=== PATIENT | male | born 2000 | race Caucasian/White ===

== ENCOUNTER 2024-08-17 13:50 | Inpatient (IN) | payer OTHER ==
[2024-08-17 16:48] VITALS: BMI 19.2
[2024-08-17] MEDS ORDERED: cloNIDine HCL 0.1 MG TABLET PO PRN (16:59)
[2024-08-17] MEDS ORDERED: BENZONATATE 200 MG CAPSULE PO PRN (17:02)
[2024-08-17] MEDS ORDERED: guaiFENesin 600 MG TABLET.ER (FP) PO PRN (17:02)
[2024-08-17] MEDS ORDERED: POLYETHYLENE GLYCOL (HEALTHYLAX) 3350 17 GM PACKET PO PRN (17:02)
[2024-08-17] MEDS ORDERED: ONDANSETRON *ODT* 4 MG TABLET SL PRN (17:02)
[2024-08-17] MEDS ORDERED: MAGNESIUM HYDROX 2400MG/30ML ORAL SUSPENSION 30 ML CUP PO PRN (17:02)
[2024-08-17] MEDS ORDERED: MAG HYDROX/AL HYDROX/SIMETH 30 ML UNIT-DOSE CUP PO PRN (17:02)
[2024-08-17] MEDS ORDERED: NICOTINE POLACRILEX 2 MG LOZENGE BC PRN (17:02)
[2024-08-17] MEDS ORDERED: DICYCLOMINE HCL 10 MG CAPSULE PO PRN (17:02)
[2024-08-17] MEDS ORDERED: BENZOCAINE/MENTHOL (CHLORASEPTIC ) LOZENGE MM PRN (17:02)
[2024-08-17] MEDS ORDERED: LOPERAMIDE HCL 2 MG CAPSULE PO PRN (17:02)
[2024-08-17] MEDS ORDERED: BISMUTH SUBSALICYLATE 524 MG/30 ML PO PRN (17:02)
[2024-08-17] MEDS ORDERED: P-EPHED 60MG/TRIPROLIDI 2.5MG TABLET PO PRN (17:02)
[2024-08-17] MEDS ORDERED: NALOXONE (NARCAN) HCL 4 MG/0.1 ML SPRAY NS PRN (17:02)
[2024-08-17] MEDS ORDERED: ACETAMINOPHEN 325 MG TABLET (FP) PO PRN (17:02)
[2024-08-17] MEDS: diazePAM 5 MG TABLET PO ONE (18:08)
[2024-08-17] MEDS: methaDONE HCL 10 MG TABLET (FOR DETOX USE ONLY) PO ONE (22:01)
[2024-08-17] MEDS: MELATONIN 5 MG TABLETS PO SCH (22:45)
[2024-08-17] MEDS: THIAMINE 100 MG TABLET PO SCH (22:45)
[2024-08-17] MEDS ORDERED: methaDONE HCL 10 MG TABLET (FOR DETOX USE ONLY) ONE (23:10)
[2024-08-17] MEDS ORDERED: diazePAM 5 MG TABLET ONE (23:10)
[2024-08-17] MEDS ORDERED: MELATONIN 5 MG TABLETS ONE (23:11)
[2024-08-17] MEDS ORDERED: NICOTINE POLACRILEX 2 MG GUM ONE (23:33)
[2024-08-17] MEDS: diazePAM 5 MG TABLET PO SCH (23:35)
[2024-08-17] MEDS: SULFAMETHOXAZOLE/TRIMETHOPRIM 800MG/160MG D.S. TABLET PO SCH (23:39)
[2024-08-17] MEDS: NICOTINE POLACRILEX 2 MG GUM BUC PRN (23:43)
[2024-08-18] MEDS ORDERED: NICOTINE POLACRILEX 2 MG GUM ONE (05:47)
[2024-08-18] MEDS ORDERED: diazePAM 5 MG TABLET ONE ×2 (05:47→10:19)
[2024-08-18] MEDS: NICOTINE POLACRILEX 4 MG GUM BUC PRN (06:58)
[2024-08-18] MEDS ORDERED: BACITRACIN 0.9 GM PACKET ONE (09:15)
[2024-08-18] MEDS ORDERED: NICOTINE POLACRILEX 4 MG GUM BUC ONE (09:34)
[2024-08-18] MEDS: NICOTINE 14 MG/24 HOURS TOPICAL PATCH TD SCH (09:46)
[2024-08-18] MEDS: PRENATAL VITAMINS W/ FOLIC ACID TABLET (FP) PO SCH (09:46)
[2024-08-18] MEDS ORDERED: PRENATAL VITAMINS W/ FOLIC ACID TABLET (FP) PO ONE (09:48)
[2024-08-18] MEDS: BACITRACIN ZINC 15 GM TUBE TOPICAL OINTMENT TP SCH (10:12)
[2024-08-18] MEDS: methaDONE HCL 10 MG TABLET (FOR DETOX USE ONLY) PO ONE (10:13)
[2024-08-18] MEDS ORDERED: NICOTINE 14 MG/24 HOURS TOPICAL PATCH TD ONE (10:20)
[2024-08-18] MEDS ORDERED: methaDONE HCL 10 MG TABLET (FOR DETOX USE ONLY) ONE (10:20)
[2024-08-18 11:16] LABS: HEMATOCRIT 33.3 % (35.4-49); HEMOGLOBIN 11.1 GM/dL (11.7-16.9); MCH 27.7 pg (25.7-33.7); MCHC 33.2 g/dl (32.0-35.9); MEAN CELL VOLUME 83.4 fl (80-96); MEAN PLT VOLUME 7.6 fl (7.5-11.1); PLATELET COUNT 401 10^3/uL (134-434); RDW 14.3 % (11.9-15.9); WHITE BLOOD COUNT 6.2 K/mm3 (4.0-10.0)
[2024-08-18 11:59] LABS: POTASSIUM 4.6 mmol/L (3.5-5.1)
[2024-08-18 12:03] LABS: ALBUMIN 2.5 g/dl (3.4-5.0); BLOOD UREA NITROGEN 10.6 mg/dL (7-18); CALCIUM 9.3 mg/dL (8.5-10.1)
[2024-08-18 12:07] LABS: BILIRUBIN,TOTAL 0.2 mg/dL (0.2-1); TOT PROT 5.6 g/dl (6.4-8.2)
[2024-08-18 12:10] LABS: CREATININE 0.7 mg/dL (0.55-1.3)
[2024-08-18] MEDS: diazePAM 5 MG TABLET PO PRN (14:43)
[2024-08-18] MEDS: POVIDONE-IODINE 10% SOLN 118 ML BOTTLE TP ONE (14:54)
[2024-08-18] MEDS: METHOCARBAMOL 500 MG TABLET PO PRN (22:18)
[2024-08-19] MEDS: diazePAM 5 MG TABLET PO SCH (05:28)
[2024-08-19] MEDS: IBUPROFEN 600 MG TABLET (FP) PO PRN (12:59)
[2024-08-20] MEDS: diazePAM 5 MG TABLET PO SCH (05:18)
[2024-08-20] MEDS: methaDONE HCL 10 MG TABLET (FOR DETOX USE ONLY) PO ONE (09:30)
[2024-08-20] MEDS: IBUPROFEN 400 MG TABLET (FP) PO PRN (17:31)
[2024-08-21] MEDS: diazePAM 5 MG TABLET PO ONE (06:02)
[2024-08-21 09:04] LABS: HEMATOCRIT 34.5 % (35.4-49); HEMOGLOBIN 11.2 GM/dL (11.7-16.9); MCH 27.1 pg (25.7-33.7); MCHC 32.6 g/dl (32.0-35.9); MEAN CELL VOLUME 83.3 fl (80-96); MEAN PLT VOLUME 7.3 fl (7.5-11.1); PLATELET COUNT 467 10^3/uL (134-434); RBC 4.14 M/mm3 (4.00-5.60); RDW 14.3 % (11.9-15.9); WHITE BLOOD COUNT 11.5 K/mm3 (4.0-10.0)
[2024-08-21 09:33] LABS: POTASSIUM 4.5 mmol/L (3.5-5.1)
[2024-08-21 09:37] LABS: ALBUMIN 2.7 g/dl (3.4-5.0); CALCIUM 8.8 mg/dL (8.5-10.1)
[2024-08-21 09:39] LABS: BLOOD UREA NITROGEN 14.6 mg/dL (7-18)
[2024-08-21 09:41] LABS: CREATININE 0.8 mg/dL (0.55-1.3)
[2024-08-21 09:43] LABS: BILIRUBIN,TOTAL 0.1 mg/dL (0.2-1); TOT PROT 6.1 g/dl (6.4-8.2)
[2024-08-21 09:58] LABS: ANISOCYTOSIS 0; HELMET CELLS 0; HOWELL-JOLLY BODIES 0; MACROCYTOSIS 0; OVALOCYTE 0; ROULEAU 0; SICKELED CELLS 0; TARGET CELLS 0; TEAR DROP CELLS 0; TOXIC GRANULATION 0
[2024-08-22] MEDS: methaDONE HCL 10 MG TABLET (FOR DETOX USE ONLY) PO ONE (09:02)
[2024-08-22] MEDS: NALOXONE (NYS OPIOID OVERDOSE PROGRAM) 4 MG/0.1 ML SPRAY NS SCH (11:41)
[2024-08-23 09:28] VITALS: TEMP 97
[2024-08-23 12:47] VITALS: BP 121/59; PULSE 88; RESP 16
== END 2024-08-23 14:52 | disposition home or self-care (01) | DRG 773 ==
LOC: YASAS 13:50 → Y3N 08-18 10:03
PROVIDERS: ADMIT Allergy & Immunology; ATTEND Surgery
PROC: HZ2ZZZZ Detoxification Services for Substance Abuse Treatment (ICD-10-PCS; principal; 2024-08-18)
DX: F11.23 Opioid dependence with withdrawal (principal); F13.20 Sedative, hypnotic or anxiolytic dependence, uncomplicated; F14.20 Cocaine dependence, uncomplicated; F17.210 Nicotine dependence, cigarettes, uncomplicated; R74.01 Elevation of levels of liver transaminase levels; D72.829 Elevated white blood cell count, unspecified
CPT/HCPCS: 36415; 80053; 85025; 85027; 86780; 87070; 87186; 87205; 93005; 93010

== ENCOUNTER 2024-08-23 14:57 | Inpatient (IN) | payer OTHER ==
[2024-08-23] MEDS ORDERED: MAG HYDROX/AL HYDROX/SIMETH 30 ML UNIT-DOSE CUP PO PRN (16:07)
[2024-08-23] MEDS ORDERED: NALOXONE (NARCAN) HCL 4 MG/0.1 ML SPRAY NS PRN (16:07)
[2024-08-23] MEDS ORDERED: LOPERAMIDE HCL 2 MG CAPSULE PO PRN (16:07)
[2024-08-23] MEDS ORDERED: guaiFENesin 600 MG TABLET.ER (FP) PO PRN (16:07)
[2024-08-23] MEDS ORDERED: BENZONATATE 200 MG CAPSULE PO PRN (16:07)
[2024-08-23] MEDS ORDERED: POLYETHYLENE GLYCOL (HEALTHYLAX) 3350 17 GM PACKET PO PRN (16:07)
[2024-08-23] MEDS ORDERED: NALOXONE HCL 0.4 MG/ML VIAL IVPUSH PRN (16:07)
[2024-08-23] MEDS: NICOTINE POLACRILEX 4 MG GUM BUC PRN (17:14)
[2024-08-23] MEDS: MELATONIN 5 MG TABLETS PO SCH (21:24)
[2024-08-23] MEDS: THIAMINE 100 MG TABLET PO SCH (21:24)
[2024-08-23] MEDS: METHOCARBAMOL 500 MG TABLET PO PRN (21:26)
[2024-08-23] MEDS: IBUPROFEN 400 MG TABLET (FP) PO PRN (21:26)
[2024-08-23] MEDS: hydrOXYzine PAMOATE 25 MG CAPSULE (FP) PO PRN (21:26)
[2024-08-24] MEDS: PRENATAL VITAMINS W/ FOLIC ACID TABLET (FP) PO SCH (09:56)
[2024-08-24] MEDS: NICOTINE 21 MG/24 HOURS TOPICAL PATCH TD SCH (09:56)
[2024-08-24] MEDS: NICOTINE POLACRILEX 4 MG LOZENGE BC PRN (14:59)
[2024-08-24] MEDS: TOLNAFTATE 1% CREAM 15 GM TUBE TP SCH (21:26)
[2024-08-25] MEDS: traZODone HCL 50 MG TABLET (FP) PO PRN (21:09)
[2024-08-26] MEDS: IBUPROFEN 600 MG TABLET (FP) PO PRN (21:11)
[2024-08-27] MEDS: DOXYCYCLINE HYCLATE 100 MG TABLET PO SCH (17:55)
[2024-08-29] MEDS: SILVER SULFADIAZINE 1% TOP CREAM 50 GM JAR TP SCH (14:10)
[2024-08-30] MEDS: MAGNESIUM HYDROX 2400MG/30ML ORAL SUSPENSION 30 ML CUP PO PRN (21:23)
[2024-08-30] MEDS: ACETAMINOPHEN 325 MG TABLET (FP) PO PRN (22:05)
[2024-08-31] MEDS: MELATONIN 5 MG TABLETS PO SCH (21:31)
[2024-09-01] MEDS: BENZOCAINE/MENTHOL (CHLORASEPTIC ) LOZENGE MM PRN (01:55)
[2024-09-01] MEDS: NICOTINE 14 MG/24 HOURS TOPICAL PATCH TD SCH (09:58)
[2024-09-02 06:50] VITALS: RESP 18
[2024-09-02 11:28] VITALS: BP 119/73; PULSE 95; TEMP 97.2
== END 2024-09-03 00:46 | disposition home or self-care (01) | DRG 772 ==
LOC: YASAS 14:57 → Y5N 14:58
PROVIDERS: ADMIT Psychiatry & Neurology Pain Medicine; ATTEND Family Medicine Addiction Medicine
PROC: HZ42ZZZ Group Counseling for Substance Abuse Treatment, Cognitive-Behavioral (ICD-10-PCS; principal; 2024-08-23)
DX: F11.20 Opioid dependence, uncomplicated (principal); F14.20 Cocaine dependence, uncomplicated; F13.20 Sedative, hypnotic or anxiolytic dependence, uncomplicated; F17.210 Nicotine dependence, cigarettes, uncomplicated; G47.00 Insomnia, unspecified; L08.89 Other specified local infections of the skin and subcutaneous tissue; B35.1 Tinea unguium; Z59.00 Homelessness unspecified